=== PATIENT | female | born 1945 | race Caucasian/White ===

== ENCOUNTER → 2017-04-04 | Outpatient (CLI) | payer OTHER ==
--- NOTE | 2017-04-04 09:40 | DI ---
XR FOOT COMPLETE MIN 3VW WB,04/04/2017 9:06 AM: Clinical History: Hammertoe of the right foot. Previous Exam: None at this facility. Findings: 3 views of the right foot are obtained, and demonstrate mild diffuse osteopenia. There is a hammertoe deformity of the right second digit. The surrounding soft tissues are unremarkable. A few peripheral vascular calcifications are seen. Impression: Hammertoe deformity of the right second digit.
== END ==
LOC: MOB RAD 09:09
PROVIDERS: ATTEND Podiatrist Foot & Ankle Surgery
DX: M20.41 Other hammer toe(s) (acquired), right foot (principal); M79.671 Pain in right foot; M21.6X1 Other acquired deformities of right foot
CPT/HCPCS: 73630

== ENCOUNTER 2017-05-10 05:46 | Day surgery (SDC) | payer OTHER, MEDICARE ==
[2017-05-10] MEDS ORDERED: ceFAZolin Inj 2gm (Premix) 50 ML IV ONE (05:52)
[2017-05-10] MEDS ORDERED: LIDOCAINE W/ SODIUM BICARB 0.5 ML SYR ONE (05:52)
[2017-05-10] MEDS ORDERED: Lactated Ringers 1,000 ML PRIMARY IV ONE (05:52)
[2017-05-10] MEDS ORDERED: LIDOCAINE 2%/ EPI 1:200,000 - 20 ML VIAL ONE (07:24)
[2017-05-10] MEDS ORDERED: fentaNYL Inj 100 MCG/2 ML VIAL ONE (07:24)
[2017-05-10] MEDS ORDERED: BUPIVACAINE 0.5% W/ EPI - 10 ML VIAL ONE (07:24)
[2017-05-10] MEDS ORDERED: MIDAZOLAM 5 MG/1 ML ONE (07:24)
--- NOTE | 2017-05-10 08:33 | CRNA.PROCE ---
Nerve Block Documentation - - Safety Measures: Time Out Taken, Site Verified - - Type of Nerve Block Used: Right Popliteal Fossa Block (Wishes Right PFB for surgery of the right foot. Discussed her possible lidocaine sensitivity with her in depth, and did a lido skin wheal, that was neg. Tolerated well), Left Popliteal Fossa Block Position for Nerve Block: Prone Moniters Used During Block: EKG, SPO2, NIBP Oxygen Sumpplented: Yes Sedation Used - Enter Amount in Comment Field: Midazolam (mg): Yes (2mg iv), Fentanyl (mcg): Yes (mcg iv) Skin Prep Used: ChloroPrep Technique: Nerve Stimulator Nerve Block Needle Used: 80 mm ProBlk II Stimulation Hz: 1.0 Stimulation Staring mA: 1.2 Stimulation Ending mA: 0.6 Local Anesthetic - Enter Amt in Comment Field: 0.5 % Bupivicaine with Epinephrine 1:200,000 (mL): Yes (20ml), 2 % Xylocaine with Epinephrine 1:200, 000 (mL): Yes (20ml)
--- NOTE | 2017-05-10 09:04 | GEN.OPNOTE ---
Operative Report Surgeon: Chaim Sultana DPM Anesthesia Type: Regional, MAC Anesthesia Provider: Dakota Morrissey CRNA Surgery Date: 05/10/17 Preoperative Diagnosis: 1. Right 2nd hammertoe. 2. Right foot pain. 3. 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 Postoperative Diagnosis: 1. Right 2nd hammertoe. 2. Right foot pain. 3. 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 Procedure: 1. Right 2nd hammertoe PIPJ arthrodesis. 2. Right 2nd MTPJ capsulotomy with extensor wing and sling lengthening. Estimated Blood Loss (mL): 2 (pneumatic cuff to the right ankle at 250 mmHg pressure for 42 minutes) Fluids: 2 g Ancef preoperative. 800 mL lactated Ringer's Complications: None Description of Procedure: The patient was brought to the operating room and placed in the supine position. They had already been given a popliteal block of the right lower extremity, and MAC was continued. The right foot was prepped and draped in the usual sterile fashion. A timeout was performed. Preoperative radiographs were reviewed. The foot was then exsanguinated with an elastic Esmarch, after which a pneumatic cuff was inflated about the ankle to 250 mmHg pressure. Attention was directed to the right second toe where a dorsal linear incision was made from the middle phalanx back to the right second metatarsophalangeal joint. This was deepened by sharp and blunt dissection to level of the extensor tendons. The extensor tendons were then transected at the second proximal phalangeal neck. Then reflected distally to expose the proximal interphalangeal joint. The collateral ligaments were released from the joint as well. The head of the proximal phalanx was then removed with a sagittal saw. Next using the [employer] reamer from the Protoe set, the base of the middle phalanx, cartilage and subchondral bone was removed. A K wire was then placed down the shaft of the proximal phalanx 1 cm. Next the middle phalanx was prepped for the implant with the appropriate sized sizer. A [employer] Protoe 2.3 mm X 16mm with 10 degree angle hammertoe implant was used to fixate the PIPJ. C-arm showed no space and tight fixation. The wound was copiously irrigated. He was noted that the metatarsophalangeal joint was contracted and continue to extend the proximal phalanx. A release of the way and sling mechanism of the extensor tendons was then performed with a #15 blade also creating a dorsal capsulotomy of the second metatarsophalangeal joint. Next the extensor tendons were reapproximated with 4-0 Vicryl. Subcutaneous tissues also closed with 4-0 Vicryl. And the skin was closed with 4-0 nylon. This was reinforced with Mastisol and Steri-Strips. A dressing was applied to the right foot. The pneumatic cuff was released after 40 minutes total time. Capillary return was noted to all toes. Jeanne will be kept non weight bearing initially because of the popliteal block, and then after it wears off, may start heel touch weight bearing with crutch or walker assistance in a surgical shoe.
[2017-05-10] MEDS ORDERED: NORMAL SALINE 10 ML SYRINGE FLUSH IVP PRN (09:18)
--- NOTE | 2017-05-10 11:09 | DI ---
XR FOOT COMPLETE MIN 3VW,05/10/2017 9:19 AM: Clinical History: Right second hammertoe. Previous Exam: April 04, 2017 Findings: 3 views of the right foot are obtained, and demonstrate anatomic alignment. Postsurgical changes are seen consistent with hammertoe repair of the second digit. There is mild prominence of the surrounding soft tissues. Impression: Postsurgical changes as above otherwise unremarkable.
[2017-05-10 11:55] VITALS: RESP 16
[2017-05-10 11:58] VITALS: TEMP 97.6
--- NOTE | 2017-05-13 09:38 | OPS CRUTCH ---
Diagnosis : Status Post Right Hammertoe Referral Reason: Gait Training O: Patient was instructed in the use of crutches with gait belt, both on level surfaces and up and down stairs, non weight-bearing P: No further therapy is indicated at this time. MTDD
== END 2017-05-10 10:44 | disposition home or self-care (01) ==
LOC: SDSC 05:46
PROVIDERS: ATTEND Podiatrist Foot & Ankle Surgery
DX: M20.41 Other hammer toe(s) (acquired), right foot (principal); M24.574 Contracture, right foot
CPT/HCPCS: 28270; 28285; 73630; 76000; 97116; J0690; J2704; J3010; 01480; J2250; J7120

== ENCOUNTER → 2017-05-23 | Outpatient (CLI) | payer OTHER, MEDICARE | LOC: MMPC 10:00 | PROVIDERS: ATTEND Podiatrist Foot & Ankle Surgery | DX: M20.41 Other hammer toe(s) (acquired), right foot (principal); Z98.890 Other specified postprocedural states ==